=== PATIENT | male | born 1975 | race Caucasian/White ===

== ENCOUNTER → 2017-01-11 13:08 | Emergency (ER) | payer BC ==
[~2017-01-11 13:08] MED LIST: Cyclobenzaprine TAB* 10 MG ONE; Cyclobenzaprine TAB* 10 MG PO ONE; Ketorolac INJ* 60 MG/2 ML VIAL IM ONE; Ketorolac INJ* 60 MG/2 ML VIAL ONE
[2017-01-11 13:12] VITALS: BP 144/89
--- NOTE | 2017-01-11 14:32 | ED ---
Back Pain - HPI Summary HPI Summary: Patient is a 41yo M with a history of back pain who presents to the ED with CC of low back pain worse in the piriformis and sciatic joints and radiates down the left leg into the left foot with numbness/tingling and sharp shooting pain which is intermittent. Herniated disc many years ago and pain is usually intermittent and improves with stretching daily. Currently taking Nucynta 50mg which is prescribed by the pain clinic for interstitial cystitis and is prescribed through Shiloh Whitfield NP. He states he is unable to take any other pain medication since he currently has a contract, but could switch any pain medications as long as the pain clinic is aware. He denies B/B dysfunction. Notes to weakness in the left leg. Ambulating, but with pain and weakness stating he must "drag" the leg behind him sometimes. Denies any other pain currently. Denies numbness, tingling, color or temperature changes. Pulses +2 bilaterally. Cap refill < 2 sec. - History of Current Complaint Chief Complaint: EDBackInjuryPain Stated Complaint: BACK PAIN Time Seen by Provider: 01/11/17 13:26 Hx Obtained From: Patient Onset/Duration: Sudden Onset Onset/Duration: Started Days Ago Timing: Intermittent Back Pain Location: Is Discrete @ - bilateral SI joints with piriformis involvement Severity Initially: Severe Severity Currently: Severe Pain Intensity: 10 Pain Scale Used: 0-10 Numeric Character: Aching Aggravating Symptom(s): Movement, Lifting, Bending Alleviating Symptom(s): Rest, Position Associated Signs And Symptoms: Positive: Weakness, Numbness, Pain with Weight Bearing. Negative: Fever, Flank Pain, Bladder Incontinence, Bowel Incontinence , Weight Loss Related History: Previous Back Injury - Risk Factors AAA Risk Factors: Negative TAD Risk Factors: Negative Cauda Equina Risk Factors: Negative Epidural Abscess Risk Factors: Negative - Allergies/Home Medications Allergies/Adverse Reactions: Allergies Allergy/AdvReac Type Severity Reaction Status Date / Time CI Pigment Blue 63 Allergy Severe SUICIDAL Verified 01/11/17 13:10 [From Cymbalta] Duloxetine [From Cymbalta] Allergy Severe SUICIDAL Verified 01/11/17 13:10 marijuana Allergy Congestion Uncoded 01/11/17 13:10 PMH/Surg Hx/FS Hx/Imm Hx Previously Healthy: Yes Endocrine/Hematology History: Denies: Hx Anticoagulant Therapy, Hx Diabetes, Hx Thyroid Disease Cardiovascular History: Reports: Hx Hypercholesterolemia, Hx Hypertension Denies: Hx Pacemaker/ICD Respiratory History: Denies: Hx Asthma, Hx Chronic Obstructive Pulmonary Disease (COPD) GI History: Reports: Hx Gastroesophageal Reflux Disease, Hx Irritable Bowel - Hx OF, Other GI Disorders - pyloric stenosis, interstitial cystitis History: Reports: Other Problems/Disorders - interstitial cystitis Denies: Hx Renal Disease Musculoskeletal History: Reports: Hx Back Problems, Hx Congenital Bone Abnormalities, Other Musculoskeletal History - tendon issue left foot Sensory History: Reports: Hx Contacts or Glasses Opthamlomology History: Reports: Hx Contacts or Glasses Neurological History: Reports: Other Neuro Impairments/Disorders - peripheral neuropathy, myoneuropathy, c1-c2 Denies: Hx Dementia, Hx Seizures Psychiatric History: Reports: Hx Anxiety, Hx Depression, Hx Inpatient Treatment , Hx Community Mental Health Tx, Hx Suicide Attempt, Hx Substance Abuse, Other Psychiatric Issues/Disorders - cutting Denies: Hx Eating Disorder, Hx of Violent Episodes Against Others - Surgical History Surgery Procedure, Year, and Place: Left Ankle Surgery Hx Anesthesia Reactions: Yes - 2010 WOKE UP DURING PROCEDURE - Immunization History Hx Pertussis Vaccination: No Immunizations Up to Date: Unable to Obtain/Confirm Infectious Disease History: No Infectious Disease History: Denies: Hx Hepatitis, Hx Human Immunodeficiency Virus (HIV), History Other Infectious Disease, Traveled Outside the [place] in Last 30 Days - Family History Known Family History: Positive: Other - Peripheral neuropathy. Family History: FHx of co-dependence - Social History Occupation: Unemployed Lives: With Family Alcohol Use: None Hx Substance Use: No Substance Use Type: Reports: None Substance Use Comment - Amount & Last Used: oxycodone Smoking Status (MU): Current Every Day Smoker Type: Cigarettes Amount Used/How Often: 1/2 PPD Length of Time of Smoking/Using Tobacco: 20 yrs Have You Smoked in the Last Year: Yes Review of Systems - ROS Summary Review of Systems Summary: Constitutional: The patient denies fever, DAVIS. HEENT: Head: The patient denies headaches or dizziness. Eyes: The patient denies diplopia, blurry vision, eye pain, eye discharge, photophobia. Throat: The patient denies sore throats or hoarseness. Cardiovascular: The patient denies chest pain, palpitations, syncope, night cramps, or orthostasis. Respiratory: The patient denies cough, sputum production, hemoptysis, dyspnea, wheezing. Gastrointestinal: The patient denies odynophagia, dysphagia, hematemesis, melenemesis. Denies abdominal pain, nausea or vomiting. Denies constipation or diarrhea. Genitourinary: Patient denies dysuria, hematuria, or pyuria. Patient denies back pain. Denies vaginal discharge, vaginal bleeding. Denies other urinary symptoms. Endocrine: The patient denies polydipsia, polyuria, or polyphagia. Muscles: The patient denies myalgia, strain or weakness. Joints: The patient denies arthralgia and/or arthritis. Neurologic: The patient denies headache, loss of consciousness, or seizure. Dermatologic: The patient denies hyperpigmentation, rash, or photosensitivity. Constitutional: Negative Negative: Fever, Chills, Fatigue Negative: Photophobia, Blurred Vision Negative: Palpitations, Chest Pain Respiratory: Negative Negative: Shortness Of Breath, Cough Gastrointestinal: Negative Negative: Abdominal Pain, Vomiting, Diarrhea, Nausea Positive: no symptoms reported, see HPI, other - hx of IC - controlled at this time. Negative: flank pain Positive: Arthralgia - bilateral SI joints with piriformis involvement Neurological: Negative All Other Systems Reviewed And Are Negative: Yes Physical Exam - Summary Physical Exam Summary: Appearance: WDW, comfortable, pleasant, alert Skin: Soft dry skin, no lesions. Nailbeds pink with no cyanosis or clubbing. No petechia noted. Eyes: ALEXEI, EOMI, Conjunctiva pink with no redness or exudates. Mouth: Dentition without lesions. Moist mucosa Neck: Full range of motion. Palpable thyroid. Trachea at midline. No lymphadenopathy. Pulm: Chest symmetrical expansion. No deformities on posterior chest wall. Lungs clear to auscultation and percussion, without adventitious sounds. CV: No JVD. No deformities on anterior chest wall. Heart soundsRRR, Normal S1 and single S2. No S3, S4, rubs, or murmurs. Carotids 2+ bilaterally without bruits. . exam not performed Abd: Soft, non-tender, bowel sounds in all 4 quadrants. No pain on deep palpation. Negative obturator. Negative simon's. No tenderness at mcburney' s point. Musculoskeletal: Thorough physical exam was performed, focusing on thoracic and lumbar special tests and ROM. Due to patient pain around injury, physical exam was limited. Limited ROM. Flip Test positive. Straight leg raise positive. Kernig test positive. Negative Babinksi. Hip flexion and extension, knee extension, dorsiflexion, great toe extension and plantar flexion intact but with pain. Rotating at hips limited d/t pain. Nerve roots L4-S2 reflexes intact. L1-S2 nerve root sensory intact. No saddle anesthesia. Gait normal. Neuro: Motor strength is 5/5 in upper and lower extremities bilaterally. A&OX3 Psych: Logical, coherent Triage Information Reviewed: Yes Vital Signs On Initial Exam: Initial Vitals Temp Pulse Resp BP Pulse Ox 98.4 F 127 16 144/89 100 01/11/17 13:10 01/11/17 13:10 01/11/17 13:10 01/11/17 13:10 01/11/17 13:10 Vital Signs Reviewed: Yes Appearance: Positive: Well-Appearing, Well-Nourished Skin: Positive: Warm, Skin Color Reflects Adequate Perfusion Head/Face: Positive: Normal Head/Face Inspection Eyes: Positive: EOMI, ALEXEI, Conjunctiva Clear Neck: Positive: Supple, No Lymphadenopathy Respiratory/Lung Sounds: Positive: Clear to Auscultation, Breath Sounds Present Cardiovascular: Positive: RRR, Pulses are Symmetrical in both Upper and Lower Extremities Musculoskeletal: Positive: Pain @ - bilateral SI joints with piriformis involvement Neurological: Positive: Speech Normal Psychiatric: Positive: Normal - Mily Coma Scale Coma Scale Total: 15 Diagnostics - Vital Signs Vital Signs Temp Pulse Resp BP Pulse Ox 01/11/17 13:10 98.4 F 127 16 144/89 100 - Laboratory Lab Statement: Any lab studies that have been ordered have been reviewed, and results considered in the medical decision making process. Back Pain Course/Dx - Course Course Of Treatment: During the course of treatment, treatment options discussed. History of back pain and herniation. Chornic pain related to IC for which is is taking Nucynta through the pain clinic. Denies B/B dysfunction. Pinprick test without abnormal findings. MSK exam performed and no weakness noted bilaterally. Unablet to assess gait on PE d/t pain. Given 60mg Toradol and 10mg flexeril. Re-assessed: Patients pain is somewhat improved. CT lumbar shows: IMPRESSION: DEGENERATIVE DISC DISEASE WITH A LEFT- SIDED DISC PROTRUSION AT L5-S1. THERE IS LEFT NEURAL. FORAMINAL NARROWING AT L5 -S1. THERE IS NO OSSEOUS CENTRAL CANAL STENOSIS. Toradol and flexeril given as prescriptions and he is to follow up with Shiloh Whitfield NP in pain clinic to discuss further pain management. Encouraged heat to the area and given Rj follow up. Note given for work. - Diagnoses Differential Diagnosis/HQI/PQRI: Positive: Herniated Disc, Strain, Sprain Provider Diagnoses: Disc herniation Discharge - Discharge Plan Condition: Stable Disposition: HOME Prescriptions: Cyclobenzaprine TAB* [Flexeril TAB*] 10 mg PO TID #15 tab Ketorolac TAB * [Toradol TAB *] 10 mg PO Q6H #16 tab Patient Education Materials: Lumbar Disc Herniation (ED) Forms: *Work Release Referrals: Ezekiel De La Rosa MD [Medical Doctor] - No Primary Care Phys,NOPCP [Primary Care Provider] - Additional Instructions: Toradol up to four times daily with meals for pain. Flexeril up to three times daily for muscular pain - do not drive with this medication. Follow up with spine surgeon if symptoms continue -I have given you a referral. If numbness, tingling, decreased sensation, increased pain, temperature changes or pallor noted in toes, come back to ER immediately. Protect the area. For your comfort level, do not bear weight, pull or push until you can injury is somewhat healed. This may involve the need for immobilization or crutches for a period of time. Rest the involved area, but not too long. You may need to be off your injury for some time to allow for healing, however excessive immobilization of joints can lead to stiffness and delay healing time. Early mobilization is encouraged if it is pain-free. Ice. Not directly on the skin. Cover with a towel. Apply ice no more than 30 minutes at a time Compression: You may use and keep an sapphire wrap bandage over the injury to decrease swelling. Again, this should be limited and be taken off periodically to encourage early range of motion and mobilization. Elevate: Try to elevate the injured area above the heart whenever possible.
--- NOTE | 2017-01-11 15:09 | RAD ---
HISTORY: Back pain, numbness and tingling COMPARISONS: MRI dated October 13, 2005 TECHNIQUE: Multiple contiguous axial CT scans were obtained of the lumbar spine without intravenous contrast, with coronal and sagittal multiplanar reformations. FINDINGS: SPINAL CANAL: Evaluation of the central canal is limited on CT technique; however, there is no obvious canalicular mass or epidural hemorrhage. ALIGNMENT: The alignment is normal. VERTEBRAL BODIES: The vertebral bodies are preserved in height. The bones are normal in attenuation. JOINTS: Unremarkable MUSCULATURE: Unremarkable INTERVERTEBRAL DISCS: There is mild loss of intervertebral disc height at L5-S1 AXIAL IMAGES: T12-L1: There is no osseous neural foraminal narrowing or central canal stenosis. L1-L2: There is no osseous neural foraminal narrowing or central canal stenosis. L2-L3: There is no osseous neural foraminal narrowing or central canal stenosis. L3-L4: There is no osseous neural foraminal narrowing or central canal stenosis. L4-L5: There is no osseous neural foraminal narrowing or central canal stenosis. L5-S1: There is a broad-based left lateral recess and foraminal disc protrusion measuring 0.9 cm in depth. There is moderate left neural foraminal area. This is progressed compared to the MRI of 2005. SOFT TISSUES: The visualized soft tissues of the abdomen are unremarkable. OTHER: None IMPRESSION: DEGENERATIVE DISC DISEASE WITH A LEFT-SIDED DISC PROTRUSION AT L5-S1. THERE IS LEFT NEURAL FORAMINAL NARROWING AT L5-S1. THERE IS NO OSSEOUS CENTRAL CANAL STENOSIS.
== END | disposition home or self-care (01) ==
LOC: ED 13:08
DX: M51.27 Other intervertebral disc displacement, lumbosacral region (principal); M51.37 Other intervertebral disc degeneration, lumbosacral region; E78.00 Pure hypercholesterolemia, unspecified; I10 Essential (primary) hypertension; K21.9 Gastro-esophageal reflux disease without esophagitis; F41.9 Anxiety disorder, unspecified; F32.9 Major depressive disorder, single episode, unspecified; F17.210 Nicotine dependence, cigarettes, uncomplicated
CPT/HCPCS: 72131; 96372; 99282; A9270-GY; J1885

== ENCOUNTER → 2017-01-11 20:23 | Emergency (ER) | payer BC ==
[~2017-01-11 20:23] MED LIST changes: -Cyclobenzaprine TAB* 10 MG ONE; -Cyclobenzaprine TAB* 10 MG PO ONE; +HYDROmorphone INJ* 2 MG/ML CARPUJECT SYRINGE IV SLOW PU ONE; -Ketorolac INJ* 60 MG/2 ML VIAL IM ONE; -Ketorolac INJ* 60 MG/2 ML VIAL ONE; +LORazepam INJ* 2 MG/ML 1 ML VIAL IV PUSH ONE; +Methocarbamol* 100 MG/ML 10 ML VIAL IV ONE
--- NOTE | 2017-01-12 00:15 | ED ---
Maxim Blount Rebecca, scribed for Kai Arredondo MD on 01/11/17 at 2045 . Back Pain - HPI Summary HPI Summary: 41 y/o M presents for the 2nd time today after being discharged for lower back pain consistent with sciatic nerve. CT done earlier today shows disc protrusion without evidence of pressure or cauda equina. Pt says that his left leg is in pain and is shooting down his leg. Denies any bladder or bowel sx. Denies saddle anesthesia. Pain worse with movement. Denies any fever or recent instrumentation. Denies neck pain or DAVIS. - History of Current Complaint Chief Complaint: EDBackInjuryPain Stated Complaint: BACK PAIN Time Seen by Provider: 01/11/17 20:34 Hx Obtained From: Patient Onset/Duration: Still Present Onset/Duration: Still Present Back Pain Location: Is Discrete @ - Lower back pain Severity Currently: Severe Pain Intensity: 10 Pain Scale Used: 0-10 Numeric Aggravating Symptom(s): Movement Associated Signs And Symptoms: Positive: Negative. Negative: Bladder Incontinence, Bowel Incontinence Related History: Similar Episode Dx As - Being seen earlier today. - Allergies/Home Medications Allergies/Adverse Reactions: Allergies Allergy/AdvReac Type Severity Reaction Status Date / Time CI Pigment Blue 63 Allergy Severe SUICIDAL Verified 01/11/17 13:10 [From Cymbalta] Duloxetine [From Cymbalta] Allergy Severe SUICIDAL Verified 01/11/17 13:10 marijuana Allergy Congestion Uncoded 01/11/17 13:10 PMH/Surg Hx/FS Hx/Imm Hx Endocrine/Hematology History: Denies: Hx Anticoagulant Therapy, Hx Diabetes, Hx Thyroid Disease Cardiovascular History: Reports: Hx Hypercholesterolemia, Hx Hypertension Denies: Hx Pacemaker/ICD Respiratory History: Denies: Hx Asthma, Hx Chronic Obstructive Pulmonary Disease (COPD) GI History: Reports: Hx Gastroesophageal Reflux Disease, Hx Irritable Bowel - Hx OF, Other GI Disorders - pyloric stenosis, interstitial cystitis History: Reports: Other Problems/Disorders - interstitial cystitis Denies: Hx Renal Disease Musculoskeletal History: Reports: Hx Back Problems, Hx Congenital Bone Abnormalities, Other Musculoskeletal History - tendon issue left foot Sensory History: Reports: Hx Contacts or Glasses Opthamlomology History: Reports: Hx Contacts or Glasses Neurological History: Reports: Other Neuro Impairments/Disorders - peripheral neuropathy, myoneuropathy, 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 Denies: Hx Dementia, Hx Seizures Psychiatric History: Reports: Hx Anxiety, Hx Depression, Hx Inpatient Treatment , Hx Community Mental Health Tx, Hx Suicide Attempt, Hx Substance Abuse, Other Psychiatric Issues/Disorders - cutting Denies: Hx Eating Disorder, Hx of Violent Episodes Against Others - Surgical History Surgery Procedure, Year, and Place: Left Ankle Surgery 08/01' Hx Anesthesia Reactions: Yes - 2010 WOKE UP DURING PROCEDURE Infectious Disease History: No Infectious Disease History: Denies: Hx Hepatitis, Hx Human Immunodeficiency Virus (HIV), History Other Infectious Disease, Traveled Outside the [place] in Last 30 Days - Family History Known Family History: Positive: Other - Peripheral neuropathy. Family History: FHx of co-dependence - Social History Alcohol Use: None Hx Substance Use: No Substance Use Type: Reports: None Substance Use Comment - Amount & Last Used: oxycodone Smoking Status (MU): Current Every Day Smoker Type: Cigarettes Amount Used/How Often: 1/2 PPD Length of Time of Smoking/Using Tobacco: 20 yrs Have You Smoked in the Last Year: Yes Review of Systems Negative: Fever Positive: other - NEGATIVE: Bladder or bowel symptoms, saddle anesthesia Positive: Arthralgia - Lower back pain, Other - NEGATIVE: Neck pain Positive: Headache All Other Systems Reviewed And Are Negative: Yes Physical Exam - Summary Physical Exam Summary: Appearance: Well-appearing, Well-nourished Skin: Warm, No rashes, no petechia, no purpura Eyes: Normal ENT: Normal Neck: Supple, nontender Respiratory: Clear to auscultation Cardiovascular: Normal Abdomen: Soft, nontender Bowel: Present Musculoskeletal: Strength/ROM Intact, Distal pulses intact in the bilateral tibial and pedal areas, normal capillary refill in the toes bilaterally, FROM in the feet and ankles, normal appearing skin bilaterally, tenderness to palpation in a non-dermotomal distribution of the left foot and left leg, soft compartments, no calf tenderness Neurological: Normal, Alert, Oriented to Person Psychiatric: Normal Triage Information Reviewed: Yes Vital Signs On Initial Exam: Initial Vitals Temp Pulse Resp BP Pulse Ox 100 F 96 20 112/92 100 01/11/17 20:29 01/11/17 20:29 01/11/17 20:29 01/11/17 20:29 01/11/17 20:29 Vital Signs Reviewed: Yes Diagnostics - Vital Signs Vital Signs Temp Pulse Resp BP Pulse Ox 01/11/17 20:29 100 F 96 20 112/92 100 - Laboratory Lab Statement: Any lab studies that have been ordered have been reviewed, and results considered in the medical decision making process. Re-Evaluation - Re-Evaluation First Eval Re-Evaluation Time: 00:07 Change: Improved Back Pain Course/Dx - Course Assessment/Plan: pt feels better after meds, CT earlier neg for cauda equina or cord compression. pt neuro intact, instructed to fu with pain mgmt and neurosurgeon/orthopedist. agrees to and ekta toro instructions - Diagnoses Provider Diagnoses: Back pain Discharge - Discharge Plan Condition: Improved Disposition: HOME Patient Education Materials: Acute Low Back Pain (ED), Lumbar Radiculopathy (ED ) Forms: *Gen. Provider Communication Referrals: No Primary Care Phys,NOPCP [Primary Care Provider] - Nicola Angel MD [Medical Doctor] - Shaka Zimmerman MD [Medical Doctor] - Additional Instructions: PLEASE MAKE AN APPOINTMENT FIRST THING IN THE MORNING TO BE SEEN BY YOUR PAIN ECG TECHNICIAN AND AN ORTHOPEDIST/NEUROSURGEON PLEASE RETURN TO THE EMERGENCY ROOM IF YOU HAVE ANY WORSENING OR CONCERNING SYMPTOMS The documentation as recorded by the Maxim negrete Rebecca accurately reflects the service I personally performed and the decisions made by me, Kai Arredondo MD.
[2017-01-12 00:42] VITALS: BP 133/92
== END | disposition home or self-care (01) ==
LOC: ED 20:23
DX: M54.5 Low back pain (principal); F17.210 Nicotine dependence, cigarettes, uncomplicated; R51 Headache
CPT/HCPCS: 96374; 96375; 99283; J1170; J2060; J2800

== ENCOUNTER 2017-01-17 15:08 | Emergency (ER) | payer BC ==
[2017-01-17] MEDS ORDERED: oxyCODONE/Acetamin 5/325 MG* TAB PO ONE (17:19)
[2017-01-17] MEDS ORDERED: oxyCODONE/Acetamin 5/325 MG* TAB ONE (17:21)
--- NOTE | 2017-01-17 18:15 | RAD ---
INDICATION: L5-S1 disc herniation on recent CT COMPARISON: CT January 11, 2017 TECHNIQUE: Coronal T2, sagittal T1, T2, inversion recovery, and axial T1 and T2-weighted images were acquired. FINDINGS: Conus medullaris: Normal in size and position . Lumbar alignment: Normal. Vertebrae: There are no focal marrow signal abnormalities. Disc spaces: T12-L1: Normal L1-L2: Normal L2-L3: Normal L3-L4: Normal L4-L5: Normal L5-S1: There is a large posterior lateral and foraminal disc herniation with extruded disc fragment. This leads to significant deformity of the anterior-left lateral aspect of the thecal sac. There is impingement upon the S1 nerve root within the canal and the L5 nerve root in the foramina. The intracanalicular component appears slightly larger. There is mild narrowing and desiccation of disc space. Soft tissues:There is no paravertebral abnormality. Other:None IMPRESSION: LARGE LEFT POSTERIOR LATERAL/FORAMINAL DISC HERNIATION WITH EXTRUDED FRAGMENT. THERE IS LEFT L5 AND LEFT S1 NERVE ROOT IMPINGEMENT.
--- NOTE | 2017-01-17 18:54 | ED ---
Ava Blount Alfonso, scribed for Carlito Figueroa MD on 01/17/17 at 1759 . Back Pain - HPI Summary HPI Summary: This patient is a 41 year old M presenting to [facility] accompanied by mother with a chief complaint of acute on chronic low back pain since 18 years ago secondary to a football injury, worse a week ago. He states the pain is something Debby never had in my life. Today he consulted Dr. Angel ( neurosurgeon) who referred him to the ED for an MRI. The patient rates the burning pain 7/10 in severity. Symptoms alleviated by nothing. Patient reports LLE numbness, and anxiety. Patient denies urinary dysfunction and fecal dysfunction. Medications reviewed. Allergies reviewed. - History of Current Complaint Chief Complaint: EDBackInjuryPain Stated Complaint: BACK PAIN/NEEDS MRI-DR PAZ Time Seen by Provider: 01/17/17 15:28 Hx Obtained From: Patient, Other: - Dr. Angel (neurosurgeon) Onset/Duration: Gradual Onset, Still Present, Other - acute on chronic Timing: Constant Severity Currently: Moderate Pain Intensity: 7 Pain Scale Used: 0-10 Numeric Character: Burning Alleviating Symptom(s): Nothing Associated Signs And Symptoms: Positive: Other - LLE numbness. Anxious - Allergies/Home Medications Allergies/Adverse Reactions: Allergies Allergy/AdvReac Type Severity Reaction Status Date / Time CI Pigment Blue 63 Allergy Severe SUICIDAL Verified 01/11/17 13:10 [From Cymbalta] Duloxetine [From Cymbalta] Allergy Severe SUICIDAL Verified 01/11/17 13:10 marijuana Allergy Congestion Uncoded 01/11/17 13:10 PMH/Surg Hx/FS Hx/Imm Hx Endocrine/Hematology History: Denies: Hx Anticoagulant Therapy, Hx Diabetes, Hx Thyroid Disease Cardiovascular History: Reports: Hx Hypercholesterolemia, Hx Hypertension Denies: Hx Pacemaker/ICD Respiratory History: Denies: Hx Asthma, Hx Chronic Obstructive Pulmonary Disease (COPD) GI History: Reports: Hx Gastroesophageal Reflux Disease, Hx Irritable Bowel - Hx OF, Other GI Disorders - pyloric stenosis, interstitial cystitis History: Reports: Other Problems/Disorders - interstitial cystitis Denies: Hx Renal Disease Musculoskeletal History: Reports: Hx Back Problems, Hx Congenital Bone Abnormalities, Other Musculoskeletal History - tendon issue left foot Sensory History: Reports: Hx Contacts or Glasses Denies: Hx Hearing Aid Opthamlomology History: Reports: Hx Contacts or Glasses Neurological History: Reports: Other Neuro Impairments/Disorders - peripheral neuropathy, myoneuropathy, c1-c2 Denies: Hx Dementia, Hx Seizures Psychiatric History: Reports: Hx Anxiety, Hx Depression, Hx Inpatient Treatment , Hx Community Mental Health Tx, Hx Suicide Attempt, Hx Substance Abuse, Other Psychiatric Issues/Disorders - cutting Denies: Hx Eating Disorder, Hx Panic Disorder, Hx of Violent Episodes Against Others - Surgical History Surgery Procedure, Year, and Place: Left Ankle Surgery . pyloris stenosis surgery. middle and ringer finger reattachment. right ulnar nerve decompression. cyst removed from skull. cyst removed from left hand Hx Anesthesia Reactions: Yes - 2010 WOKE UP DURING PROCEDURE Infectious Disease History: No Infectious Disease History: Denies: Hx Hepatitis, Hx Human Immunodeficiency Virus (HIV), History Other Infectious Disease, Traveled Outside the [place] in Last 30 Days - Family History Known Family History: Positive: Other - Peripheral neuropathy. Family History: FHx of co-dependence - Social History Alcohol Use: None Hx Substance Use: No Substance Use Type: Reports: None, Prescribed Substance Use Comment - Amount & Last Used: oxycodone, ativan Smoking Status (MU): Current Every Day Smoker Type: Cigarettes Amount Used/How Often: 1/2 PPD Length of Time of Smoking/Using Tobacco: 20 yrs Have You Smoked in the Last Year: Yes Review of Systems Negative: Fever Positive: Other - Negative fecal dysfunction Positive: no symptoms reported Positive: Other - low back pain Positive: Numbness - LLE Positive: Anxious All Other Systems Reviewed And Are Negative: Yes Physical Exam - Summary Physical Exam Summary: General: well-appearing, Mild pain distress with movement Skin: warm, color reflects adequate perfusion, dry Head: normal Eyes: EOMI, ALEXEI ENT: normal Neck: supple, nontender Respiratory: CTA, breath sounds present Cardiovascular: RRR Abdomen: soft, nontender Bowel: present Musculoskeletal: Tender over left sacroiliac joint and the sciatic distribution of the left buttock. 5/5 Hip and knee and plantar strength. Decreased strength of left great toe and left foot dorsal flexion. Decrease sensation in left foot and lower left leg. 2+ bilateral patellar reflexes. Neurological: A&O x3 Psychological: affect/mood appropriate Triage Information Reviewed: Yes Vital Signs On Initial Exam: Initial Vitals Temp Pulse Resp BP Pulse Ox 99.4 F 125 18 155/96 100 01/17/17 15:29 01/17/17 15:29 01/17/17 15:29 01/17/17 15:29 01/17/17 15:29 Vital Signs Reviewed: Yes - [place] Coma Scale Coma Scale Total: 15 Diagnostics - Vital Signs Vital Signs Temp Pulse Resp BP Pulse Ox 01/17/17 17:23 18 01/17/17 15:29 99.4 F 125 18 155/96 100 - Laboratory Lab Statement: Any lab studies that have been ordered have been reviewed, and results considered in the medical decision making process. - Additional Comments Diagnostic Additional Comments: MRI L-Spine reveals, per radiologist, LARGE LEFT POSTERIOR LATERAL/FORAMINAL DISC HERNIATION WITH EXTRUDED FRAGMENT. THERE IS LEFT L5 AND LEFT S1 NERVE ROOT IMPINGEMENT. ED physician has reviewed this radiology report and agrees. Back Pain Course/Dx - Course Course Of Treatment: RESULTS OF MRI DISCUSSED WITH PATIENT, HIS MOTHER AND DR ELIZONDO, NEUROSURGERY. RX PERCOCET 5/325MG #20. F/U WITH DR ANGEL TOMORROW, 01/18/17 AT 2PM. - Diagnoses Provider Diagnoses: Foot drop, left, Lumbar disc disease with radiculopathy Discharge - Discharge Plan Condition: Stable Disposition: HOME Prescriptions: oxyCODONE/Acetamin 5/325 MG* [Percocet 5/325 TAB*] 1 tab PO Q4H PRN #20 tab MDD 6 PRN Reason: Pain Patient Education Materials: Lumbar Disc Herniation (ED), Foot Drop (ED), Lumbar Radiculopathy (ED) Referrals: No Primary Care Phys,NOPCP [Primary Care Provider] - Nicola Angel MD [Medical Doctor] - Additional Instructions: FOLLOW UP WITH NEUROSURGERY, DR ANGEL, TOMORROW, 01/18/17, AT 2PM AT HIS OFFICE. RETURN TO THE EMERGENCY DEPARTMENT FOR ANY WORSENING OF YOUR CONDITION OR QUESTIONS OR CONCERNS. The documentation as recorded by the Ava negrete Alfonso accurately reflects the service I personally performed and the decisions made by me, Carlito Figueroa MD.
[2017-01-17 19:06] VITALS: BP 155/104
== END 2017-01-17 19:05 | disposition home or self-care (01) ==
LOC: ED 15:08
DX: M51.16 Intervertebral disc disorders with radiculopathy, lumbar region (principal); M21.372 Foot drop, left foot; E78.00 Pure hypercholesterolemia, unspecified; I10 Essential (primary) hypertension; K21.9 Gastro-esophageal reflux disease without esophagitis; F41.9 Anxiety disorder, unspecified; F32.9 Major depressive disorder, single episode, unspecified; F17.210 Nicotine dependence, cigarettes, uncomplicated
CPT/HCPCS: 72148; 99282; A9270-GY

== ENCOUNTER 2017-01-26 07:12 | Observation (INO) | payer BC ==
[~2017-01-26 07:12] MED LIST changes: +Buffered Lidocaine 0.9% SYRIN* 5 ML/SYR SYRINGE INTRADERM ONE; +Buffered Lidocaine 0.9% SYRIN* 5 ML/SYR SYRINGE ONE; +Famotidine IV* 10 MG/ML 2 ML (20 mg) IV ONE; +Famotidine IV* 10 MG/ML 2 ML (20 mg) ONE; -HYDROmorphone INJ* 2 MG/ML CARPUJECT SYRINGE IV SLOW PU ONE; -LORazepam INJ* 2 MG/ML 1 ML VIAL IV PUSH ONE; +Lidocaine 1% MPF wEPI 200,000* 30 ML SDV ONE; -Methocarbamol* 100 MG/ML 10 ML VIAL IV ONE; +Thrombin 5,000 UNITS* 1 APPLIC KIT - topical use - TOPICAL ONE; +ceFAZolin 2 GM PREMIX (*) 2 GM/50 ML BAG IVPB ONE
[2017-01-26] MEDS ORDERED: Midazolam* 1 MG/ML 5 ML VIAL (5 MG) ONE (07:37)
[2017-01-26] MEDS ORDERED: fentaNYL* 50 MCG/ML 2 ML VIAL (100 MCG VIAL) ONE ×3 (07:37→08:09)
[2017-01-26] MEDS ORDERED: Rocuronium* 10 MG/ML VIAL ONE (07:37)
[2017-01-26] MEDS ORDERED: ceFAZolin 2 GM PREMIX (*) 2 GM/50 ML BAG IVPB ONE (07:41)
[2017-01-26] MEDS ORDERED: Midazolam* 1 MG/ML 2 ML VIAL (2 MG) ONE (08:05)
[2017-01-26] MEDS ORDERED: DiMENhydriNATE IV* 50 MG/ML VIAL IV PUSH PRN (09:03)
[2017-01-26] MEDS ORDERED: fentaNYL* 50 MCG/ML 2 ML VIAL (100 MCG VIAL) IV PRN (09:03)
[2017-01-26] MEDS ORDERED: Propofol* 10 MG/ML 20 ML BTL IV PUSH ONE ×2 (09:26→14:28)
[2017-01-26] MEDS ORDERED: Ondansetron INJ* 2 MG/ML VIAL IV PRN (09:53)
[2017-01-26] MEDS ORDERED: Acetaminophen TAB* 325 MG PO PRN (09:53)
[2017-01-26] MEDS ORDERED: HYDROcodone/ACETAMIN 5-325 MG* 1 TAB PO PRN (09:53)
--- NOTE | 2017-01-26 10:12 | RAD ---
INDICATION: Lumbar discectomy, fluoroscopy COMPARISONS: None relevant TECHNIQUE: Fluoroscopy was provided for a surgical procedure. Total fluoroscopy time is: The second FINDINGS: Spot images demonstrate a metallic probe in the L5-S1 disc space, counting from L5 as the last lumbar type vertebral body. IMPRESSION: FLUOROSCOPY WAS PROVIDED FOR A SURGICAL PROCEDURE CPT II Codes: 6045F
[2017-01-26] MEDS: oxyCODONE/Acetamin 5/325 MG* TAB PO PRN ×2 (10:33→10:34)
[2017-01-26] MEDS ORDERED: oxyCODONE/Acetamin 5/325 MG* TAB ONE (10:33)
[2017-01-26] MEDS ORDERED: Mouth Piece, Nicotine* 1 EACH CARTRIDGE INH PRN (12:52)
[2017-01-26] MEDS ORDERED: Nicotine Inhaler* 10 MG AMP INH PRN (12:52)
[2017-01-26] MEDS: Nicotine PATCH 21 MG/24 HR* PATCH TRANSDERM SCH (13:12)
[2017-01-26] MEDS: HYDROcodone/ACETAMIN 5-325 MG* 1 TAB PO PRN ×3 (13:12→21:17)
[2017-01-26] MEDS: AMPHETAMINE DEXTROAMPHETAMINE PO SCH ×2 (13:12→21:19)
[2017-01-26] MEDS: Cyclobenzaprine TAB* 10 MG PO PRN ×2 (13:16→21:20)
--- NOTE | 2017-01-26 13:44 | OP ---
DATE OF OPERATION: 01/26/17 - ROOM #332 DATE OF : 75 SURGEON: Nicola Angel MD TAR DISTRIBUTOR OPERATOR: ELENA Camacho ANESTHESIOLOGIST: Nichole Dong MD ANESTHESIA: General. PRE-OP DIAGNOSIS: Left L5-S1 herniated nucleus pulposus. POST-OP DIAGNOSIS: Left L5-S1 herniated nucleus pulposus. ESTIMATED BLOOD LOSS: 10 cc. COMPLICATIONS: None. SUMMARY: The patient is a very pleasant 41-year-old gentleman with complaints of left lower extremity pain with weakness in the left foot dorsiflexion , EHL and plantar flexion as well as decreased sensation below his ankle, who presented with MRI findings consistent with a left L5-S1 herniated nucleus pulposus. The patient was offered the option of surgical intervention after failing all possible treatments in the form of left L5-S1 diskectomy. After all expectations, limitation, and possible complications of the procedure have been explained in detail with the patient and his family including his father and mother with complications included, but not limited to bleeding, infection, risk of damage to adjacent structures, coma, paralysis, , need for additional procedures, anesthesia risk, stroke, blindness, cancer, instability, need for additional procedures, bladder or bowel injury, loss of bladder and bowel control. The patient and his family were agreeable to proceed with surgery. The patient understood that his condition may not improve and in fact may get worse after surgery that he may need some additional procedure in the future and that intraoperative plan may modify the current intraoperative findings and conditions. DESCRIPTION OF PROCEDURE: The patient was brought to the operating room, was placed under general anesthesia with anesthesia obtained. He was carefully positioned prone on the Raghu frame on the Yoni table and all bony prominences were meticulously padded. His skin was prepped and draped in the standard fashion. After appropriate surgical pause and patient identification, a small paramedian incision, approximately 2 cm was made at the level L5-S1 on the left after confirming the appropriate surgical level with intraoperative fluoroscopic imaging. The METRx retractor system was introduced after series of tubular dilators and the intraoperative microscope was brought into the field. A small amount of remaining paraspinal musculature was removed with Bovie cautery and curette and rongeurs and the left lamina of L5 were easily identified. The appropriate level was confirmed with another intraoperative laparoscopic imaging and after drilling a small amount of lamina, the ligamentum flavum was carefully dissected free from the lateral attachment and after removing the small portion of it, it was reflected medially. The thecal sac and the left S1 nerve root was readily identified and after gentle retraction, several large pieces of disk fragments were identified and were carefully removed with pituitary rongeur. Then, attention was brought to perform a diskectomy. After general retraction of the nerve root, a skin plate was used to perform a small annulotomy and then careful diskectomy was performed. A significant amount of degenerative disk was identified. After irrigating the disk space with irrigation and after confirmed meticulous hemostasis, the tubular retractor was gently removed. At the end of the procedure, the thecal sac and the nerve root was free of any gross phenomena. After meticulous hemostasis was confirmed and careful inspection of the wound, the wound was closed by layers with 0 interrupted Vicryl sutures to reapproximate the dorsal facet, 2-0 interrupted Vicryl suture to reapproximate the subcutaneous tissue, and 4-0 Monocryl to approximate the skin in a subcuticular fashion. The skin was covered with Steri-Strips and sterile dressings. At the end of the procedure, all counts were reported to be correct. The patient remained hemodynamically stable throughout the case. At the end of the case, the patient was turned carefully in supine position, was extubated and was transferred to the recovery in excellent condition, was present and scrubbed, I was available for the entirety of the case. [id number]/[facility] #: [id number] MD ABNER Sy
[2017-01-26] MEDS ORDERED: Ketorolac INJ* 30 MG/ML 1 ML VIAL ONE (14:28)
[2017-01-26] MEDS ORDERED: DiMENhydriNATE IV* 50 MG/ML VIAL ONE (14:28)
[2017-01-26] MEDS ORDERED: Dexamethasone IV* 4 MG/ML 1 ML (4 MG) ONE (14:28)
[2017-01-26] MEDS ORDERED: Succinylcholine* 20 MG/ML 10 ML VIAL ONE (14:28)
[2017-01-26] MEDS ORDERED: Ondansetron INJ* 2 MG/ML VIAL ONE (14:28)
[2017-01-26] MEDS ORDERED: Lidocaine 2% PF * 5 ML VIAL ONE (14:28)
[2017-01-26] MEDS ORDERED: LORazepam TAB(*) 1 MG PO PRN (16:51)
[2017-01-26] MEDS ORDERED: LORazepam TAB(*) 1 MG ONE (16:53)
[2017-01-26] MEDS ORDERED: Nicotine Patch Removal NOTE PATCH OFF SCH (21:00)
[2017-01-26] MEDS ORDERED: QUEtiapine TAB* 100 MG PO SCH (21:00)
[2017-01-27] MEDS: HYDROcodone/ACETAMIN 5-325 MG* 1 TAB PO PRN ×3 (01:23→10:34)
[2017-01-27] MEDS: Cyclobenzaprine TAB* 10 MG PO PRN (06:21)
[2017-01-27] MEDS ORDERED: BuPROPion XL* 300 MG TAB.XL PO SCH (09:00)
[2017-01-27] MEDS: Nicotine PATCH 21 MG/24 HR* PATCH TRANSDERM SCH (09:21)
[2017-01-27] MEDS: AMPHETAMINE DEXTROAMPHETAMINE PO SCH (09:22)
[2017-01-27 09:24] VITALS: BP 119/68
--- NOTE | 2017-01-27 09:28 | PN ---
Progress Note - Progress Note Date of Service: 01/27/17 Note: No events ON. Patient tolerates PO well. Ambulates. LLE pain resolved. Exam: VVS Wound soft clean dry, AAOx3, Motor 5/5 except Lt EHL, 4+/5 (improved c/w preop per patient and my exam ), sensory intact to light touch. s/p 41 yom sp left L5-S1 MIS discectomy Plan: D/C today Omar Angel MD
--- NOTE | 2017-01-27 14:25 | DS ---
DISCHARGE SUMMARY: DATE OF ADMISSION: 01/26/17 DATE OF DISCHARGE: 01/27/17 ADMISSION DIAGNOSIS: Left L5-S1 herniated nucleus pulposus. DISCHARGE DIAGNOSIS: Left L5-S1 herniated nucleus pulposus. OPERATIVE PROCEDURE: The patient underwent a left L5-S1 herniated nucleus pulposus. SUMMARY: The patient is a very pleasant 41-year-old gentleman with complaints of left lower extremit y pain with weakness in the left lower extremity, who had MRI findings consistent with a left L5-S1 h erniated nucleus pulposus. He was offered the option of surgical intervention after failing conserva tive treatments and after explaining expectation that this was complicated procedure with complicatio ns including, but not limited to bleeding, infection, risk of damage to adjacent structures, paralysi s, , need for additional procedures, anesthesia risk, spinal fluid leak, blindness, cancer, inst ability. The patient was agreeable to proceed with surgery. He underwent left L5-S1 diskectomy on 03/28/16. He tolerated the procedure well. He was able to be extubated and was transferred to the [facility]. He significantly improved with the resolution of his left lower extremity pain. The next day, he was able to ambulate, tolerating p.o. well. He improved in his left lower extremity strength and was able to be discharged home. DISPOSITION: Home. [id number]/[facility] #: [id number]
== END 2017-01-27 11:40 | disposition home or self-care (01) ==
LOC: OR 07:12 → SSU 11:06
PROVIDERS: ADMIT Neurological Surgery; ATTEND Neurological Surgery
PROC: 0SB20ZZ Excision of Lumbar Vertebral Disc, Open Approach (ICD-10-PCS; principal; 2017-01-26 07:45)
DX: M51.17 Intervertebral disc disorders with radiculopathy, lumbosacral region (principal); M21.379 Foot drop, unspecified foot; M51.26 Other intervertebral disc displacement, lumbar region; F17.210 Nicotine dependence, cigarettes, uncomplicated
CPT/HCPCS: 72100; 76001; A9270-GY; G0378; J0330; J0690; J1100; J1240; J1885; J2001; J2250; J2405; J2704; J3010

== ENCOUNTER 2017-01-29 13:47 | Emergency (ER) | payer BC ==
[2017-01-29 15:03] LABS: Hematocrit 44 % (42-52); Mean Corpuscular HGB Conc 34 g/dl (31-36); Mean Corpuscular Hemoglobin 30 pg (27-31); Mean Corpuscular Volume 88 fL (80-94); Mean Platelet Volume 7 um3 (7.4-10.4); Red Blood Count 4.97 10^6/ul (4.0-5.4); Red Cell Distribution Width 13 % (10.5-15); White Blood Count 9.1 10^3/ul (3.5-10.8)
[2017-01-29 15:16] LABS: Albumin 3.9 g/dL (3.2-5.2); BUN/Creatinine Ratio 19.2 (8-20); Calcium 9.1 mg/dL (8.6-10.3); EGFR African American 101.2 (>60); EGFR Non-African American 78.7 (>60); Potassium 4.1 mmol/L (3.5-5.0); Total Bilirubin 0.3 mg/dL (0.2-1.0); Total Protein 6.9 g/dL (6.4-8.9)
[2017-01-29 15:46] LABS: Urine Bacteria Absent (Absent); Urine Bilirubin Negative (Negative); Urine Glucose Negative (Negative); Urine Nitrite Negative (Negative)
[2017-01-29] MEDS ORDERED: HYDROmorphone INJ* 1 MG/ML CARPUJECT SYRINGE IV ONE (16:16)
[2017-01-29 17:26] VITALS: BP 128/94
--- NOTE | 2017-01-29 17:38 | RAD ---
INDICATION: Right-sided chest pain COMPARISON: April 02, 2012 TECHNIQUE: PA and lateral dual-energy views were obtained. FINDINGS: Bones/Soft Tissues: There are no acute bony findings. Cardiomediastinal: The cardiomediastinal silhouette is normal. Lungs: There are no infiltrates. There is no pneumothorax. Pleura: There are no pleural effusions. Other: None IMPRESSION: NEGATIVE EXAMINATION.
--- NOTE | 2017-01-29 18:19 | ED ---
Troy Blount SooYoung, scribed for Shivam Villegas MD on 01/29/17 at 1433 . Abdominal Pain/Male - HPI Summary HPI Summary: A 41 y/o M presents to ED with c/o R-sided abd pain onset last night and worsening. Pt notes prev episode of similar sx that occurred approx. 4.5 years ago due to taking too much Tylenol. Pt had recent back surgery and is on a pain med regiment, he goes to the pain clinic. Last took pain meds at 0100. Recent medication change. Is currently on Keeling for back pain. - History of Current Complaint Chief Complaint: EDAbdPain Stated Complaint: ABD PAIN, PELVIS Time Seen by Provider: 01/29/17 14:00 Hx Obtained From: Patient, Family/Strategic Planning Director - family present Onset/Duration: Gradual Onset, Lasting Hours - onset last night, Still Present Timing: Constant Severity Initially: Moderate Severity Currently: Severe Pain Intensity: 10 Pain Scale Used: 0-10 Numeric Location: Discrete At: RUQ, Discrete At: RLQ - Allergies/Home Medications Allergies/Adverse Reactions: Allergies Allergy/AdvReac Type Severity Reaction Status Date / Time CI Pigment Blue 63 Allergy Severe SUICIDAL Verified 01/29/17 13:56 [From Cymbalta] Duloxetine [From Cymbalta] Allergy Severe SUICIDAL Verified 01/29/17 13:56 marijuana Allergy Congestion Uncoded 01/29/17 13:56 PMH/Surg Hx/FS Hx/Imm Hx Previously Healthy: No Endocrine/Hematology History: Denies: Hx Anticoagulant Therapy, Hx Diabetes, Hx Thyroid Disease Cardiovascular History: Reports: Hx Hypercholesterolemia, Hx Hypertension - NOT CURRENTLY ON MEDICATION WAS ON 2 YEARS AGO Denies: Hx Pacemaker/ICD Respiratory History: Denies: Hx Asthma, Hx Chronic Obstructive Pulmonary Disease (COPD) GI History: Reports: Hx Gastroesophageal Reflux Disease, Hx Irritable Bowel - Hx OF, Other GI Disorders - pyloric stenosis, interstitial cystitis History: Reports: Other Problems/Disorders - interstitial cystitis Denies: Hx Renal Disease Musculoskeletal History: Reports: Hx Back Problems, Hx Congenital Bone Abnormalities, Other Musculoskeletal History - tendon issue left foot Sensory History: Reports: Hx Contacts or Glasses - GLASSES Denies: Hx Hearing Aid Opthamlomology History: Reports: Hx Contacts or Glasses - GLASSES Neurological History: Reports: Other Neuro Impairments/Disorders - peripheral neuropathy, myoneuropathy, c1-c2 Denies: Hx Dementia, Hx Seizures Psychiatric History: Reports: Hx Anxiety, Hx Depression, Hx Inpatient Treatment , Hx Community Mental Health Tx, Hx Suicide Attempt, Hx Substance Abuse, Other Psychiatric Issues/Disorders - cutting Denies: Hx Eating Disorder, Hx Panic Disorder, Hx of Violent Episodes Against Others - Surgical History Surgery Procedure, Year, and Place: Left Ankle Surgery . pyloris stenosis surgery. middle and ringer finger reattachment. right ulnar nerve decompression. cyst removed from skull. VEIN STRIPPING LEFT LEG [facility]. cyst removed from left hand. ORAL SURGERY FOR IMPLANTS Hx Anesthesia Reactions: Yes - 2010 WOKE UP DURING PROCEDURE Infectious Disease History: No Infectious Disease History: Denies: Hx Hepatitis, Hx Human Immunodeficiency Virus (HIV), History Other Infectious Disease, Traveled Outside the [place] in Last 30 Days - Family History Known Family History: Positive: Other - Peripheral neuropathy. Neg: anasthesia reaction Family History: FHx of co-dependence - Social History Occupation: Employed Full-time Lives: With Family Alcohol Use: None Hx Substance Use: Yes Substance Use Comment - Amount & Last Used: oxycodone, ativan Hx Tobacco Use: Yes Smoking Status (MU): Light Every Day Tobacco Smoker Type: Cigarettes Amount Used/How Often: 1/2 PPD Length of Time of Smoking/Using Tobacco: 20 yrs Have You Smoked in the Last Year: Yes Review of Systems Negative: Fever Positive: Abdominal Pain All Other Systems Reviewed And Are Negative: Yes Physical Exam - Summary Physical Exam Summary: The patient is well-nourished in no acute distress and in no acute pain. The skin is warm and dry and skin color reflects adequate perfusion. Pt is anicteric, not jaundiced. HEENT: The head is normocephalic and atraumatic. The pupils are equal and reactive. The conjunctivae are clear and without drainage. Nares are patent and without drainage. Mouth reveals moist mucous membranes and the throat is without erythema and exudate. The external ears are intact. The ear canals are patent and without drainage. The tympanic membranes are intact. Neck is supple with full range of motion and non-tender. There are no carotid bruits. There is no neck vein distension. Respiratory: Chest is non-tender. Lungs are clear to auscultation and breath sounds are symmetrical and equal. Cardiovascular: Hear is regular rate and rhythm. There is no murmur or rub auscultated. There is no peripheral edema and pulses are symmetrical and equal. Abdomen: The abdomen is soft and mildly tender in RUQ. There are normal bowel sounds heard in all four quadrants and there is no organomegaly palpated. Musculoskeletal: There is no back pain noted. Extremities are non-tender with full range of motion. There is good capillary refill. There is no peripheral edema or calf tenderness elicited. Neurological: Patient is alert and oriented to person, place and time. The patient has symmetrical motor strength in all four extremities. Cranial nerves are grossly intact. Deep tendon reflexes are symmetrical and equal in all four extremities. Psychiatric: The patient has an appropriate affect and does not exhibit any anxiety or depression. Triage Information Reviewed: Yes Vital Signs On Initial Exam: Initial Vitals Temp Pulse Resp BP Pulse Ox 98.0 F 110 16 133/88 100 01/29/17 13:52 01/29/17 13:52 01/29/17 13:52 01/29/17 13:52 01/29/17 13:52 Vital Signs Reviewed: Yes Diagnostics - Vital Signs Vital Signs Temp Pulse Resp BP Pulse Ox 01/29/17 13:52 98.0 F 110 16 133/88 100 - Laboratory Lab Results: Lab Results 01/29/17 01/29/17 01/29/17 Range/Units 14:48 14:48 15:23 WBC 9.1 (3.5-10.8) 10^3/ul RBC 4.97 (4.0-5.4) 10^6/ul Hgb 15.0 (14.0-18.0) g/dl Hct 44 (42-52) % MCV 88 (80-94) fL MCH 30 (27-31) pg MCHC 34 (31-36) g/dl RDW 13 (10.5-15) % Plt Count 333 (150-450) 10^3/ul MPV 7 L (7.4-10.4) um3 Neut % (Auto) 70.0 (38-83) % Lymph % (Auto) 17.2 L (25-47) % Clarke % (Auto) 10.0 H (1-9) % Eos % (Auto) 2.4 (0-6) % Baso % (Auto) 0.4 (0-2) % Absolute Neuts (auto) 6.4 (1.5-7.7) 10^3/ul Absolute Lymphs (auto) 1.6 (1.0-4.8) 10^3/ul Absolute Monos (auto) 0.9 H (0-0.8) 10^3/ul Absolute Eos (auto) 0.2 (0-0.6) 10^3/ul Absolute Basos (auto) 0 (0-0.2) 10^3/ul Absolute Nucleated RBC 0 10^3/ul Nucleated RBC % 0 Sodium 137 (133-145) mmol/L Potassium 4.1 (3.5-5.0) mmol/L Chloride 101 (101-111) mmol/L Carbon Dioxide 31 (22-32) mmol/L Anion Gap 5 (2-11) mmol/L BUN 20 (6-24) mg/dL Creatinine 1.04 (0.67-1.17) mg/dL Est GFR ( Amer) 101.2 (>60) Est GFR (Non-Af Amer) 78.7 (>60) BUN/Creatinine Ratio 19.2 (8-20) Glucose 109 H (70-100) mg/dL Calcium 9.1 (8.6-10.3) mg/dL Total Bilirubin 0.30 (0.2-1.0) mg/dL AST 15 (13-39) U/L ALT 13 (7-52) U/L Alkaline Phosphatase 67 (34-104) U/L Total Protein 6.9 (6.4-8.9) g/dL Albumin 3.9 (3.2-5.2) g/dL Globulin 3.0 (2-4) g/dL Albumin/Globulin Ratio 1.3 (1-3) Urine Color Straw Urine Appearance Clear Urine pH 7.0 (5-9) Ur Specific [place] 1.009 L (1.010-1.030) Urine Protein Negative (Negative) Urine Ketones Negative (Negative) Urine Blood 1+ H (Negative) Urine Nitrate Negative (Negative) Urine Bilirubin Negative (Negative) Urine Urobilinogen Negative (Negative) Ur Leukocyte Esterase Negative (Negative) Urine WBC (Auto) Trace(0-5/hpf) (Absent) Urine RBC (Auto) Trace(0-2/hpf) (Absent) Urine Bacteria Absent (Absent) Urine Glucose Negative (Negative) Result Diagrams: 01/29/17 14:48 01/29/17 14:48 Lab Statement: Any lab studies that have been ordered have been reviewed, and results considered in the medical decision making process. - Radiology CXR Xray Interpretation: No Acute Changes - IMPRESSION: Negative examination. ED physician has reviewed this radiology report and agrees. Radiology Interpretation Completed By: Radiologist Re-Evaluation - Re-Evaluation First Eval Re-Evaluation Time: 16:52 Change: Unchanged Comment: Discussing results with pt and family. Discussing plan to medicate. Abdominal Pain Fem Course/Dx - Course Course Of Treatment: Mr. Salgado presented with right side pain for a couple of days. He has just had low back surgery and has had to lie on his right side and is not used to that so he attributes the pain to that. It soes hurt to move around. He is mostly worried about his liver as he had a problem some years back from taking too much tylenol. He has been given Keeling in an attempt to wean him off his nucynta now that his back has had definitive treatment and he is worried about the tylenol. His liver enzymes were fine here his abdomen was soft and nontender and a CXR was negative. I recommended symptomatic treatment. He has a spot of microscopic blood in his urine and a stone is a possibioity, however he doesn't act like a stone at this time. - Diagnoses Provider Diagnoses: Abdominal pain Discharge - Discharge Plan Condition: Stable Disposition: HOME Patient Education Materials: Abdominal Pain (ED) Referrals: No Primary Care Phys,NOPCP [Primary Care Provider] - [facility] [Outside] Additional Instructions: Establish and follow up with a primary care provider. Please return to the ED if you experience new or worsening symptoms. The documentation as recorded by the Troy negrete SooYoung accurately reflects the service I personally performed and the decisions made by me, Shivam Villegas MD.
== END 2017-01-29 17:26 | disposition home or self-care (01) ==
LOC: ED 13:47
DX: R10.9 Unspecified abdominal pain (principal); F17.210 Nicotine dependence, cigarettes, uncomplicated
CPT/HCPCS: 36415; 71020; 80053; 81003; 81015; 85025; 96374; 99282; J1170

== ENCOUNTER 2017-06-08 06:08 | Inpatient (IN) | payer BC ==
[~2017-06-08 06:08] MED LIST changes: -Buffered Lidocaine 0.9% SYRIN* 5 ML/SYR SYRINGE ONE; -Famotidine IV* 10 MG/ML 2 ML (20 mg) IV ONE; -Famotidine IV* 10 MG/ML 2 ML (20 mg) ONE; -Lidocaine 1% MPF wEPI 200,000* 30 ML SDV ONE; -Thrombin 5,000 UNITS* 1 APPLIC KIT - topical use - TOPICAL ONE; -ceFAZolin 2 GM PREMIX (*) 2 GM/50 ML BAG IVPB ONE
[2017-06-08] MEDS ORDERED: Buffered Lidocaine 0.9% SYRIN* 5 ML/SYR SYRINGE ONE (06:32)
[2017-06-08] MEDS ORDERED: ceFAZolin 2 GM PREMIX (*) 2 GM/50 ML BAG IVPB ONE (06:32)
[2017-06-08] MEDS ORDERED: Thrombin 5,000 UNITS* 1 APPLIC KIT - topical use - TOPICAL ONE (07:32)
[2017-06-08] MEDS ORDERED: Lidocaine 1% MPF wEPI 200,000* 30 ML SDV ONE (07:32)
[2017-06-08] MEDS ORDERED: Bacitracin IV* 50,000 UNITS INJ ONE (07:32)
[2017-06-08] MEDS ORDERED: fentaNYL* 50 MCG/ML 5 ML VIAL (250 MCG VIAL) ONE (07:33)
[2017-06-08] MEDS ORDERED: Propofol* 10 MG/ML 20 ML BTL IV PUSH ONE (07:34)
[2017-06-08] MEDS ORDERED: Lidocaine 2% PF * 5 ML VIAL ONE (07:35)
[2017-06-08] MEDS ORDERED: Atracurium* 10 MG/ML 10 ML VIAL ONE (07:35)
[2017-06-08] MEDS ORDERED: DiMENhydriNATE IV* 50 MG/ML VIAL IV PUSH PRN (08:53)
[2017-06-08] MEDS ORDERED: HYDROmorphone INJ* 1 MG/ML CARPUJECT SYRINGE IV PRN (08:53)
[2017-06-08] MEDS ORDERED: oxyCODONE TAB* 5 MG TAB PO PRN ×3 (08:53→16:18)
[2017-06-08] MEDS ORDERED: Ondansetron INJ* 2 MG/ML VIAL IV PRN ×2 (08:53→10:07)
[2017-06-08] MEDS ORDERED: Naloxone* 0.4 MG/ML 1 ML VIAL IV PRN (08:53)
[2017-06-08] MEDS ORDERED: Acetaminophen IV 1GM/100ML * 10 MG/ML VIAL IVPB ONE (08:53)
[2017-06-08] MEDS ORDERED: Acetaminophen IV 1GM/100ML * 100 ML ONE (10:03)
[2017-06-08] MEDS ORDERED: Magnesium Hydroxide LIQ* 30 ML UDC PO PRN (10:07)
[2017-06-08] MEDS ORDERED: Nicotine Inhaler* 10 MG AMP INH PRN (10:10)
[2017-06-08] MEDS ORDERED: Mouth Piece, Nicotine* 1 EACH CARTRIDGE INH PRN ×2 (10:10)
[2017-06-08] MEDS ORDERED: AMPHETAMINE PO SCH (10:15)
[2017-06-08] MEDS ORDERED: DEXTROAMPHETAMINE PO SCH (10:15)
[2017-06-08] MEDS ORDERED: fentaNYL* 50 MCG/ML 2 ML VIAL (100 MCG VIAL) ONE (10:46)
[2017-06-08] MEDS: fentaNYL* 50 MCG/ML 2 ML VIAL (100 MCG VIAL) IV PRN ×2 (10:47→10:55)
--- NOTE | 2017-06-08 11:09 | RAD ---
CPT II Codes: 6045F INDICATION: Lumbar discectomy. Fluoroscopic services provided for referring physician. 16 seconds of fluoroscopy time was used. There is localization of the L5-S1 disc interspace. IMPRESSION: Fluoroscopic services provided for referring physician for lumbar surgery.
[2017-06-08] MEDS: Nicotine PATCH 21 MG/24 HR* PATCH TRANSDERM SCH (11:44)
[2017-06-08] MEDS: Carisoprodol TAB* 350 MG PO PRN ×2 (11:49→20:01)
[2017-06-08] MEDS: Amphetamine MIXED SALT TAB* 10 MG TAB PO SCH ×2 (15:10→19:57)
--- NOTE | 2017-06-08 16:03 | CONSULT ---
Consult Consult: INPATIENT PAIN CONSULTATION Iftikhar Salgado is a 41 year old male. He has a history of chronic pelvic pain as a result of interstitial cystitis. He has been seeing the [facility] for Pain Management since 2012, saw me originally in 2010. He had been started on Nucynta by his urologist which his providers in the Pain Clinic continued. He was sent to Dr. Andres in 2012 and was changed to hydromorphone. In September,, he was hospitalized for a tylenol overdose. I tried him on Butrans after the overdose, but that was not really helpful and he went back to Nucynta. He had to take oxycodone for a while when he lost his health insurance, but went back on Nucynta when he got insurance back. Recently, due to decreased availability of Nucynta, he went on Belbuca, but felt this was ineffective. On his last visit to the Pain Clinic, he was put back on Nucynta (in May,). Iftikhar developed back pain and left leg numbness in 2016. He had an MRI of his lumbar spine in late December. There was a large disc herniation at L5/S1. He underwent an L5/S1 diskectomy January 26, 2017. This was helpful. He returned to work at [employer]. Shortly after returning, he was having left leg pain and back pain. He saw Dr. Angel and had a new MRI. He had a large left recurrent disk herniation at L5/S1. He had a redo diskectomy this morning. I am asked to help with his pain management. PAST MEDICAL HISTORY: History of interstitial cystitis. He has a history of cutting. He has a history of alcohol abuse and went through rehab for that. He has stayed away from alcohol, but does not go to 12 step meetings or regular counseling. He has anxiety and sees Dr. Cleveland. ALLERGIES: Cymbalta Current Medications Amphetamine/Dextroamphetamine (Adderall Tab*) 30 mg PO TID PATI Last Admin: 06/08/17 15:10 Dose: 30 mg Bupropion HCl (Bupropion Xl*) 300 mg PO QAM PATI Carisoprodol (Soma Tab*) 350 mg PO TID PRN PRN Reason: PAIN Last Admin: 06/08/17 11:49 Dose: 350 mg Device (Nicotine Mouth Piece*) 1 each INH .USE WITH NICOTROL PRN PRN Reason: CRAVING Lactated Ringer's (Lactated Ringers 1000 Ml Bag*) 1,000 mls @ 75 mls/hr IV .per rate [facility] Lorazepam (Ativan Tab(*)) 1 mg PO TID PRN PRN Reason: ANXIETY Magnesium Hydroxide (Milk Of Magnesia Liq*) 30 ml PO DAILY PRN PRN Reason: CONSTIPATION Naloxone HCl (Narcan*) 0.08 mg IV Q2M PRN PRN Reason: severe induced resp depression Stop: 06/09/17 08:52 Nicotine (Nicotine Inhaler*) 10 mg INH Q2H PRN PRN Reason: CRAVING Nicotine (Nicotine Patch 21 Mg/24 Hr*) 1 patch TRANSDERM DAILY [facility] Last Admin: 06/08/17 11:44 Dose: Not Given Ondansetron HCl (Zofran Inj*) 4 mg IV Q6H PRN PRN Reason: NAUSEA/VOMITING Oxycodone HCl (Roxycodone Tab*) 5 mg PO Q4H PRN PRN Reason: SEVERE PAIN Last Admin: 06/08/17 11:49 Dose: 5 mg Pharmacy Profile Note (Nicotine Patch Removal Note*) 1 note FOLLOW UP 0600 [facility] Quetiapine Fumarate (Seroquel Tab*) 300 mg PO BEDTIME [facility] SOCIAL HISTORY: Non Drinker, smokes 1/4-1/2 ppd. Denies drugs. Lives with parents. Was working FT at [employer] Vital Signs Temp Pulse Resp BP Pulse Ox 98.7 F 84 16 113/47 99 06/08/17 15:33 06/08/17 15:33 06/08/17 15:33 06/08/17 15:33 06/08/17 15:33 EXAM: LUNGS: Clear HEART: reg rhythm ABDOMEN: Soft BACK: Wound clean EXTREMITIES: Normal muscle bulk and tone NEUROLOGIC: alert and oriented. Moves all 4 extremities ASSESSMENT: 1. Lumbar radiculopathy 2. Interstitial Cystitis 3. History of Alcohol abuse, sober for many years PLAN: I will adjust his oxycodone to 5-10 mg Q 4 PRN. I will add bowel medications. Hopefully, can get back on Nucynta soon.
[2017-06-08] MEDS: oxyCODONE TAB* 5 MG TAB PO PRN ×2 (16:54→21:48)
[2017-06-08] MEDS: Docusate CAP* 100 MG PO SCH (19:57)
[2017-06-08] MEDS ORDERED: QUEtiapine TAB* 300 MG PO SCH (21:00)
[2017-06-08] MEDS ORDERED: Senna TAB PO SCH (21:00)
[2017-06-09] MEDS: oxyCODONE TAB* 5 MG TAB PO PRN ×4 (01:34→14:07)
[2017-06-09] MEDS ORDERED: Nicotine Patch Removal NOTE FOLLOW UP SCH (06:00)
[2017-06-09 07:35] VITALS: BP 128/70
[2017-06-09] MEDS: Docusate CAP* 100 MG PO SCH (08:45)
[2017-06-09] MEDS: Amphetamine MIXED SALT TAB* 10 MG TAB PO SCH ×2 (08:45→14:06)
[2017-06-09] MEDS: Carisoprodol TAB* 350 MG PO PRN ×2 (08:46→14:07)
[2017-06-09] MEDS: Nicotine PATCH 21 MG/24 HR* PATCH TRANSDERM SCH (08:49)
[2017-06-09] MEDS ORDERED: BuPROPion XL* 300 MG TAB.XL PO SCH (09:00)
[2017-06-09] MEDS: LORazepam TAB(*) 0.5 MG PO PRN ×2 (10:10→14:07)
--- NOTE | 2017-06-09 13:30 | OP ---
OPERATIVE REPORT: DATE OF SURGERY: 06/08/17 DATE OF : 75 SURGEON: Nicola Angel MD. ENVIRONMENTAL EPIDEMIOLOGIST: ELENA Camacho Case was done with assistance of the surgical PA because of the complexity of the case. ANESTHESIA: General. PRE-OP DIAGNOSIS: Recurrent left L5-S1 herniated nucleus pulposus. POST-OP DIAGNOSIS: Recurrent left L5-S1 herniated nucleus pulposus. PROCEDURE PERFORMED: Patient underwent revision of left L5-S1 diskectomy with lysis of adhesions and left S1 foraminotomy. ESTIMATED BLOOD LOSS: 20 cc. COMPLICATIONS: None. SUMMARY: The patient is a very pleasant 41-year-old gentleman with history of chronic back pain and interstitial cystitis who is on pain management service. A few weeks ago, he had left L5-S1 microdiskectomy for large left L5-S1 disk herniation. The patient recovered very well from previous intervention, but he presented with recurrence of his back pain radiating to the left lower extremity with left lower extremity weakness and numbness. MRI revealed large recurrent left L5-S1 herniated nucleus pulposus and after failing conservative modalities, patient was offered the option of surgical intervention in the form of left L5-S1 revision diskectomy and lysis of adhesions and extended foraminotomy. After explaining expectations, limitations, and possible complication of the procedure with the patient and his family including his mother and father with complication including but not limited to bleeding, infection, risk of injury to adjacent structures, coma, paralysis, , need for additional procedure, anesthesia risk, stroke, blindness, cancer, instability, spinal fluid leak, need for additional procedures, recurrence of disk, the patient and his family were agreeable to proceed with surgery. Informed consent was obtained. The patient and his family understood that his condition may not improve and in fact may get worse after the surgery and he may need to have additional procedure in the future. They also understood that operative plan may be modified according to intraoperative findings and conditions. DESCRIPTION OF PROCEDURE: The patient was brought to the operating room and was placed under general anesthesia by the anesthesia team. He was carefully positioned prone on Raghu frame on Yoni table and all bony prominences were meticulously padded. His skin was prepped and draped in the standard fashion and after localization with intraoperative fluoroscopy, his previous surgical incision site was incised with #10 surgical blade after the skin was infiltrated with local anesthetic. The dorsal fascia was also incised and over a series of dilators, the tubular METRx retractor system was introduced into the field. Microscope was brought into the field and after exposing the lamina of L5 as well as the L5-S1 facet with Bovie cautery, the previous scar tissue was identified and gently removed in part with pituitary rongeurs. A high speed drill was used to fasten the small hemilaminectomy and partial medial facetectomy, which was completed with use of Kerrison punches. A significant amount of scar tissue was identified at the area of the previous diskectomy. Normal dura was identified cephalad of the scar tissue formation as well as left S1 nerve root was identified and extended foraminotomy was performed with Kerrison punches. After careful microdissection, dura was gently retracted medially with nerve root retractor and a large herniated nucleus pulposus was identified after incising the posterior longitudinal ligament and the scar tissue. As expected from one of the MRIs, a large amount of disk material was found and this was carefully removed with pituitary rongeurs. The disk space was then identified and the diskectomy was completed with the use of pituitary rongeurs. Of note, significant degeneration of the intervertebral disk was identified. At the end of the procedure, meticulous hemostasis was confirmed and after copious irrigation, the thecal sac and the nerve root was found to be free of any pressure phenomenon while intraoperative microscopic imaging confirmed the appropriate surgical level. Then tubular retractor was gently removed and after confirmation of meticulous hemostasis, the wound was closed by layers with 0 interrupted Vicryl sutures approximated dorsal fascia, 2-0 interrupted Vicryl sutures approximated the subcutaneous tissue. The skin was covered with Dermabond and sterile dressings. At the end of the procedure, all counts were reported to be correct. The patient remained hemodynamically stable throughout the case. He was then carefully turned supine, was extubated and was transferred to Recovery in excellent condition, moving all extremities very well. [id number]/[facility] #: [id number] ABNER
--- NOTE | 2017-06-09 15:54 | PN ---
Progress Note - Progress Note Date of Service: 06/09/17 SOAP: Subjective: []Patient seen earlier today. No events ON. feels much better. LLE pain resolved. LLE numbness improving. Ambulates, Tolerates po well, Voids. Wants to go home. Objective: []VVS, Afebrile, Wound soft, clean, dry. AAOx3 , ALEXEI, CN II-XII grossly intact. Motor 5/5. Sensory intact except LLE foot, similar with preop. Assessment: []41 yo m POD#1 revision Left L5-S1 discectomy Plan: []Encourage ambulation. PT cleared pt for home. Appreciate Dr Kumar's help with pain management. Will prescribe percocet for 3-4 days and then may return to his usual pain regimen, as suggested by Dr Gray. Full instructions were given to patient and his mother. Omar Angel MD
--- NOTE | 2017-06-10 03:50 | DS ---
DISCHARGE SUMMARY: DATE OF ADMISSION: 06/08/17 DATE OF DISCHARGE: 06/09/17 PROCEDURE: Patient underwent revision left L5-S1 microdiskectomy. PREOPERATIVE DIAGNOSIS: Left L5-S1 recurrent herniated nucleus pulposus. POSTOPERATIVE DIAGNOSIS: Left L5-S1 recurrent herniated nucleus pulposus. SUMMARY: Patient is a very pleasant 41-year-old gentleman with history of chronic opioid use, on herlinda n service for interstitial cystitis with history of panic attacks and julee that has recently operate d on for L5-S1 herniated nucleus pulposus. The patient unfortunately increased his activity very rap idly and he returned with similar complaints with back pain radiating to the left lower extremity wit h lower extremity weakness and numbness. MRI revealed large left L5-S1 recurrent disk herniation. A fter explaining the expectations, limitations, possible complications with complications including bu t not limited to bleeding, infection, risk of injury to adjacent structures, paralysis, , need f or additional procedures, anesthesia risk, the patient was offered the option of surgical interventio n in the form of left L5-S1 lumbar diskectomy revision. Patient was agreeable to proceed with nathalia pichardo and informed consent was obtained. The patient underwent the above procedure. He tolerated the pr ocedure very well. He was extubated and was transferred to Recovery in excellent condition. He was then transferred to the regular floor. He was able to ambulate. His preoperative left lower extremi ty pain has completely resolved while his numbness has significantly improved. The next day, he had very good pain control with p.o. pain medication. Dr. Rios was consulted, who adjust his pain me dication regimen. Patient was able to ambulate, void, and remain neurologically well with 5/5 streng th in all extremities. He was felt to be ready to be discharged home. He was cleared by [facility] noel and he was discharged home with p.o. prescription of Percocet as discussed with Dr. Rios fo r approximately 3 to 4 days and was instructed to call the pain clinic in order to resume his regular regimen after 4 days. He was also instructed to call his PCP in order to review his home medication . Full instructions given to the patient and his mother. DISPOSITION: Home. [id number]/[facility] #: [id number]
== END 2017-06-09 16:40 | disposition home or self-care (01) | DRG 320 ==
LOC: OR 06:08 → SSU 10:07 → OBSVTOIN 10:15 → SSU 10:15
PROVIDERS: ADMIT Neurological Surgery; ATTEND Neurological Surgery
PROC: 01NR0ZZ Release Sacral Nerve, Open Approach (ICD-10-PCS; 2017-06-08)
PROC: 01NB0ZZ Release Lumbar Nerve, Open Approach (ICD-10-PCS; principal; 2017-06-08 07:30)
DX: M51.17 Intervertebral disc disorders with radiculopathy, lumbosacral region (principal); N30.10 Interstitial cystitis (chronic) without hematuria; F11.90 Opioid use, unspecified, uncomplicated; M21.379 Foot drop, unspecified foot; G89.29 Other chronic pain; F17.210 Nicotine dependence, cigarettes, uncomplicated; F41.0 Panic disorder [episodic paroxysmal anxiety]; Z88.8 Allergy status to other drugs, medicaments and biological substances
CPT/HCPCS: 76001; A9270-GY; J0690; J2001; J2704; J3010

== ENCOUNTER 2023-01-21 17:40 | Inpatient (IN) ==
[2023-01-21 19:47] LABS: ABS Eosinophils 0.3 10^3/uL (0.0-0.5); ABS Lymphocytes 1.8 10^3/uL (1.0-4.8); ABS Monocytes 0.7 10^3/uL (0.0-1.1); Eosinophil % 2.8 %; Hematocrit 42.7 % (38-53); Hemoglobin 14.9 g/dL (13.2-16.3); Lymphocyte % 18.5 %; Mean Corpuscular Hemoglobin 31.3 pg (27-33); Mean Corpuscular Volume 89.5 fL (80-97); Mean Platelet Volume 7.9 fL (7.5-11.2); Platelet Count 301 10^3/uL (150-450); Red Blood Count 4.77 10^6/uL (4.06-5.63); Red Cell Distribution Width 12.6 % (12-17); White Blood Count 9.8 10^3/uL (3.6-10.2)
[2023-01-21 19:50] LABS: Urine Appearance Cloudy; Urine Bilirubin Negative (Negative); Urine Blood Negative (Negative); Urine Color Amber; Urine Glucose Negative (Negative); Urine Ketones Negative (Negative); Urine Nitrite Negative (Negative); Urine Protein Negative (Negative); Urine Specific Gravity 1.025 (1.002-1.030); Urine Urobilinogen Negative (Negative)
[2023-01-21 20:17] LABS: Albumin 4.6 g/dL (3.2-5.2); Anion Gap 9 mmol/L (2-16); CO2 Carbon Dioxide 27 mmol/L (22-32); Calcium 10.1 mg/dL (8.6-10.3); Chloride 101 mmol/L (101-111); Sodium 137 mmol/L (135-145); Total Bilirubin 0.3 mg/dL (0.2-1.0)
[2023-01-21 20:23] LABS: ALT 17 U/L (7-52); AST 20 U/L (13-39); Albumin/Globulin Ratio 1.6 (1-3); Alkaline Phosphatase 74 U/L (35-149); Blood Urea Nitrogen 25 mg/dL (6-24); Creatinine, Serum 1.47 mg/dL (0.67-1.17); Globulin 2.8 g/dL (2-4); Glucose 124 mg/dL (70-100); Total Protein 7.4 g/dL (6.4-8.9); eGFR CKD-EPI 58.8 (>60)
[2023-01-21 20:26] LABS: Urine Benzodiazepine Screen None Detected (None Detect); Urine Cannabinoids Screen None Detected (None Detect); Urine Opiates Screen None Detected (None Detect)
[2023-01-21 20:59] LABS: Acetaminophen < 15 mcg/mL; Alcohol, S < 13 mg/dL (<13); Salicylate < 2.50 mg/dL (<30)
[2023-01-21 21:14] LABS: TSH Ultra Thyroid Stim Horm 1.61 mcIU/mL (0.34-5.60)
[2023-01-22] MEDS ORDERED: Al Hydrox/Mg Hydrox/Simet LIQ 30 ML UDC PO PRN (01:08)
[2023-01-22] MEDS: TAPENTADOL 50 MG PO PRN ×3 (01:50→22:30)
[2023-01-22] MEDS: Vitamin THERAPEUTIC TAB PO SCH (09:41)
[2023-01-22] MEDS: Nicotine PATCH 21 MG/24 HR PATCH TRANSDERM SCH (09:42)
[2023-01-23] MEDS: TAPENTADOL 50 MG PO PRN ×3 (02:36→20:03)
[2023-01-23 08:28] LABS: HDL Cholesterol 35.3 mg/dL
[2023-01-23] MEDS: Vitamin THERAPEUTIC TAB PO SCH (08:54)
[2023-01-23] MEDS: Nicotine PATCH 21 MG/24 HR PATCH TRANSDERM SCH (08:55)
[2023-01-23] MEDS: Amphetamine MIXED SALT 10mgTAB PO SCH ×2 (09:47→14:16)
[2023-01-24] MEDS: TAPENTADOL 50 MG PO PRN ×5 (00:07→22:17)
[2023-01-24] MEDS: Vitamin THERAPEUTIC TAB PO SCH (09:17)
[2023-01-24] MEDS: Amphetamine MIXED SALT 10mgTAB PO SCH ×3 (09:18→16:58)
[2023-01-24] MEDS: Nicotine PATCH 21 MG/24 HR PATCH TRANSDERM SCH (09:20)
[2023-01-25] MEDS: Nicotine PATCH 21 MG/24 HR PATCH TRANSDERM SCH ×2 (09:30→14:20)
[2023-01-25] MEDS: Amphetamine MIXED SALT 10mgTAB PO SCH ×3 (09:35→17:35)
[2023-01-25] MEDS: Vitamin THERAPEUTIC TAB PO SCH (09:36)
[2023-01-25] MEDS: TAPENTADOL 50 MG PO PRN ×3 (13:37→21:57)
[2023-01-26] MEDS: Amphetamine MIXED SALT 10mgTAB PO SCH (08:42)
[2023-01-26] MEDS: Vitamin THERAPEUTIC TAB PO SCH (08:44)
[2023-01-26] MEDS: TAPENTADOL 50 MG PO PRN (08:44)
[2023-01-26] MEDS: Nicotine PATCH 21 MG/24 HR PATCH TRANSDERM SCH (08:48)
[2023-01-26 09:15] VITALS: BP 136/78
== END 2023-01-26 11:50 | disposition home or self-care (01) | DRG 753 ==
LOC: ED 17:40 → EDHOLD 01-22 01:08 → BSU 01-22 01:15
PROVIDERS: ADMIT Psychiatry & Neurology Addiction Psychiatry; ATTEND Psychiatry & Neurology Psychiatry